=== PATIENT | female | born 1975 | race Caucasian/White ===

== ENCOUNTER 2022-10-18 15:19 | Outpatient (OUT) | payer BC, SELFPAY ==
--- NOTE | 2022-10-18 15:26 | XR_ITS ---
The [address] [address] Patient Name: ARSEN FLORES MRN: [id number] date: 1975 Sex: F Assigned Patient Location: [facility] Current Patient Location: RAD Accession/Order Number: [id number] Exam Date: 10/18/2022 15:40 Report Date: 10/18/2022 17:36 At the request of: ALISSA STRICKLAND Procedure: XR chest 2V EXAM: XR chest 2V COMPARISON: 02/04/2022 CLINICAL INDICATION: Concern for acute bronchitis. FINDINGS: The cardiomediastinal silhouette is within normal limits. No focal consolidation. No pleural effusion. No pneumothorax. Peribronchial thickening seen on today's exam, also appears to be present on priors, chronic small airways disease versus acute bronchitis. Lungs appear slightly hyperexpanded with relative lucency in the apices, suggesting emphysematous change. XR/XR chest 2V IMPRESSION: Peribronchial thickening seen on today's exam, also appears to be present on priors, chronic small airways disease versus acute bronchitis. Lungs appear slightly hyperexpanded with relative lucency in the apices, suggesting emphysematous change. No focal consolidation. Electronically authenticated by: JULIO CESAR ANN Date: 10/18/2022 17:36
== END 2022-10-18 15:20 | disposition home or self-care (01) ==
PROVIDERS: PCP Family Medicine; Visit Provider Internal Medicine
DX: J20.9 Acute bronchitis, unspecified (principal)
CPT/HCPCS: 71046

== ENCOUNTER 2025-01-28 19:57 | Emergency (ER) | payer BC, SELFPAY ==
--- OUTSIDE RECORDS SUMMARY | 2024-11-27 09:30 | XMS_ITS ---
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 Name Role Phone Marco A Umanzor DO Primary Care Provider Unavailab Joseph Power Unavailable [phone] REASON FOR VISIT 6m F/U - Asthma Encounters Encounter Location Date Provider Diagnosis [facility] [address] [place] [address] 11/27/2024 Joseph Weaver Plan Of Treatment No Information Progress Notes * Flaquito CHILDERSFortinoB: 3 (50 yo F)Acc No.[id number]:11/27/2024 UNLOCKED PROGRESS NOTE Follow Up Patient: Stacey MELÉNDEZ :?MILDRED FountainOB:1975???Age:49 Y ???Sex:FemaleDate:11/27/2024Phone:[phone]:[address], [id number]:Marco A Umanzor DO Subjective: * Chief Complaints: * 1 . 6m F/U - Asthma. * Medical History: Objective: * Vitals: Assessment: Plan: * Treatment: * * Electronic signature of Joseph Weaver DO on 01/28/2025 at 08:39 PM EDTSign off status: PendingVisit Status:?OFF CANC (OFFICE CANCEL) * Provider: Jaziel Weaver DO Date: 0 11/27/2024 Generated for Printing/Faxing/eTransmitting on:?01/28/2025 08:39 PM EDT
--- OUTSIDE RECORDS SUMMARY | 2025-01-24 20:57 | XMS_ITS | Continuity of Care Document ---
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 Phone Marco A Umanzor DO Primary Care Provider Marco A Umanzor DO Attending Provider [phone] Care Teams Patient Care Team Team Status: Active Member Role/Relationship Status Dates Marco A Umanzor DO Primary Care Provider Active Visit Care Team Team Status: Inactive Member Role/Relationship Status Dates Marco A Umanzor DO Primary Care Provider Active S tart: December 31, 2024 End: December 31, 2024Dakatalina Umanzor DOAttlizeth ProviderActiveStart: December 31, 2024 End: December 31, 2024 Visit Care Team Team Status: Inactive Member Role/Relationship Status Dates Marco A Umanzor DO Primary Care Provider Active S tart: January 02, 2025 End: January 02, 2025DaErik Díaz ProviderActiveStart: January 02, 2025 End: January 02, 2025 Visit Care Team Team Status: Inactive Member Role/Relationship Status Dates Marco A Umanzor DO Primary Care Provider Active S tart: January 24, 2025 End: January 24, 2025DaErik Díaz ProviderActiveStart: January 24, 2025 End: January 24, 2025 Chief Complaint and Reason for Visit Chief Complaint Admit Date Z79.899 R73.9 D88.9 E05.90 R35.1 D64.9 S eptember 2024 8:41am review labs/med refill January 02, 2025 1:19pm Z12.31 January 24, 2025 1 :11pm Reason for Visit Admit Date Anemia January 02, 2025 1: 19pm Asthma January 02, 2025 1: 19pm Foot pain, bilateral January 02, 2025 1 :19pm Hematuria January 02, 2025 1: 19pm Hyperglycemia January 02, 2025 1: 19pm Hyperlipidemia January 02, 2025 1: 19pm Hyperthyroidism January 02, 2025 1: 19pm Sleep apnea January 02, 2025 1: 19pm Vitamin D deficiency January 02, 2025 1 :19pm Allergies, Adverse Reactions, Alerts Allergen Type Severity Reaction Last Updated Verified Status phentermine Allergy Unknown 04/11/2023 unable to tolerate: shakiness January 02, 2025 9:14am Yes Active Social History Smoking Status Status Start Date End Date Date of Observa tion Ex-smoker (finding) January 02, 2025 1:28pm Observation Status Observation Response Date of Response Legal Sex [facility] (finding) [facility] Family History Relationship Condition Age at Onset Recorded Date/T pau Not Specified Coronary artery disease Unknown fatherHeart diseaseUnknownDeceasedUnknownHypertensionUnknownDiabetes mellitus UnknowngrandparentDeceasedUnknowngrandparentDeceasedUnknownDiabetes mellitus UnknownHeart diseaseUnknownDepressionUnknowngrandparentMyocardial infarction UnknownDeceasedUnknownmotherBorderline diabetes mellitusUnknownHeart disease UnknownDeceasedUnknownHypertensionUnknown Problems Active Problems Problem Diagnosis/Recorded Date Onset Date Status C omments Suspected 2018 novel coronav irus infection August 08, 2019 1:46pm Unknown Active COVID-19October 2021 4:42amUnknownActiveAcute coughFebruary 2024 10:26amUnknownActiveBody mass index [BMI] 40.0-44.9, adultMarch 2024 1:43pmUnknownActiveAcute respiratory failure with hypoxiaMay 2019 3:43pm UnknownActiveCOPD with acute exacerbationMay 2019 3:42pmUnknownActiveSleep apneaOctober 2024 1:47pmUnknownActiveHematuriaOctober 2024 1:43pm UnknownActiveFatty liverJune 2023 12:15pmUnknownActiveAcute carpal tunnel syndromeJune 2021 5:30amUnknownActiveFoot pain, bilateralMarch 2023 1:50pmUnknownActiveAnemiaJuly 2023 9:48amUnknownActiveCellulitisNovember 2023 3:22pmUnknownActiveDyspneaMay 2019 1:46pmUnknownActiveAcute and chronic respiratory failure with hypoxiaOctober 2019 11:37amUnknownActive Tobacco smoker, less than 10 cigarettes per daySeptember 2019 1:48pm UnknownActiveHyperglycemiaJuly 2023 9:47amUnknownActiveHyperlipidemiaJune 2023 12:15pmUnknownActiveHyperthyroidismJune 2023 12:15pmUnknown ActiveContusion of ribJune 2019 10:04pmUnknownActiveWeight gainOctober 2023 1:40pmUnknownActiveWheezingMay 2019 1:46pmUnknownActiveMorbid obesity due to excess caloriesSeptember 2019 1:48pmUnknownActiveBody aches February 2024 10:25amUnknownActiveHypoxiaMay 2019 1:46pmUnknownActive Exposure to influenzaFebruary 2024 10:25amUnknownActiveInfluenza ALumbar painMarch 2024 1:44pmUnknownActiveHip pain, rightMarch 2024 1:43pm UnknownActiveAcute respiratory distressSeptember 2019 2:02pmUnknownActive COPD exacerbationSeptember 2019 2:02pmUnknownActiveAbdominal painOctober 2016 1:18amUnknownActiveVitamin D deficiencyJuly 2023 6:12pmUnknown ActiveAsthmaOctober 2021 3:00amUnknownActiveAcute hypokalemiaOctober 2016 1:18amUnknownActiveInactive/Resolved Problems Problem Diagnosis/Recorded Date Onset Date Status Loretta lutz COVID-January 10, 2022 3:50pm Unknown Resolved 01/23January 02, 2020 2:02pm Unknown Resolved Medications Medication Status Dose Units Route Directions Qty Days Refills S tart Date Stop Date End Date Reason(s) Instructions Adherence Oxycodone-Acetaminophen 5-325 mg tablet Discontinued 0 POQ6H as needed for Oggh4798Feh 2023July 2023 9:59amPain in both feet Pain in right foot Pain in left foottake 1/2 to 1 tablet by mouth every 6 hours as needed for pain Oxycodone-Acetaminophen 5-325 mg moachkJsbjosowhcmy3MTJ6X as needed for Hzyg3360 November 21, 2023October 2023 1:45pmPain in both feet Pain in right foot Pain in left foottake 1/2 to 1 tablet by mouth every 6 hours as needed for pain Oxycodone-Acetaminophen 5-325 mg xoxuctGzssxoqquziy6KZK0H as needed for Pocb6916 February 08ecember 2023 12:01pmPain in both feet Pain in right foot Pain in left foottake 1/2 to 1 tablet by mouth every 6 hours as needed for pain Phentermine (Adipex-P) 37.5 mg cqytqgXzmxeihrwjcl33.5MGPOEvery qjijfwh58037 March 07, 2024 11:35amFebruary 2024 10:10amWeight gain Abnormal weight gainErgocalciferol (Vitamin D2) 1,250 mcg (50,000 unit) capsule Myiwli1024DSRMOyidvy pfja44947Lblpasvw 2023 12:52pmUnknownOxycodone- Acetaminophen 5-325 mg oomajqRrluvxgllnyo0NQO0O as needed for Hftf2607Kcrrhuj 31st, 2025March 2024 10:16amPain in both feet Pain in right foot Pain in left foottake 1/2 to 1 tablet by mouth every 6 hours as needed for pain Oxycodone-Acetaminophen 5-325 mg vfamuxZjhiwxfgedes7WGU7L as needed for Ucdy1660 June 05pril 2024 10:58amPain in both feet Pain in right foot Pain in left foottake 1/2 to 1 tablet by mouth every 6 hours as needed for pain Oxycodone-Acetaminophen 5-325 mg vxvkmwXnloqrfxcaru5SDK3Z as needed for Ecec3523 July 092024 2:47pmPain in both feet Pain in right foot Pain in left foottake 1/2 to 1 tablet by mouth every 6 hours as needed for pain Oxycodone-Acetaminophen 5-325 mg flcbsgPbiadsozqxvi3DPF1F as needed for Rlfd7569 August 062024 3:50pmPain in both feet Pain in right foot Pain in left foottake 1/2 to 1 tablet by mouth every 6 hours as needed for pain Oxycodone-Acetaminophen 5-325 mg hiwagrWldshrqcqola5LRH3J as needed for Lubs9350 August 062024 4:55pmPain in both feet Pain in right foot Pain in left foottake 1/2 to 1 tablet by mouth every 6 hours as needed for pain Oxycodone-Acetaminophen 5-325 mg obywlpQyswuodkfyuv1GVC4Z as needed for Qahb4996 August 062024 5:34pmPain in both feet Pain in right foot Pain in left foottake 1/2 to 1 tablet by mouth every 6 hours as needed for pain Oxycodone-Acetaminophen 5-325 mg enicfiHgpfzpyaxtqc6IKM2H as needed for Uxop0432 August 06, 2024June 2024 2:22pmPain in both feet Pain in right foot Pain in left foottake 1/2 to 1 tablet by mouth every 6 hours as needed for pain Oxycodone-Acetaminophen 5-325 mg jrpjroRjpljsdiqgem2ATO7F as needed for Tiwr0852 September 10, 2024July 2024 10:51amPain in both feet Pain in right foot Pain in left foottake 1/2 to 1 tablet by mouth every 6 hours as needed for pain Oxycodone-Acetaminophen 5-325 mg pzvmjlTkarusxgcwac1ZOK6K as needed for Qyjl1574 October 082024 9:58amPain in both feet Pain in right foot Pain in left foottake 1/2 to 1 tablet by mouth every 6 hours as needed for pain Oxycodone-Acetaminophen 5-325 mg wertlmLoyunqyfnhfk3FFO0C as needed for Urej7261 November 08, 2024September 2024 4:37pmPain in both feet Pain in right foot Pain in left foottake 1/2 to 1 tablet by mouth every 6 hours as needed for pain Oxycodone-Acetaminophen 5-325 mg oagdcoPnksdqcgiiqe2QNK2N as needed for Jxbw5394 December 10, 2024October 2024 1:51pmPain in both feet Pain in right foot Pain in left foottake 1/2 to 1 tablet by mouth every 6 hours as needed for pain Theophylline 300 mg tablet extended release 12 yoLvosttoekihk297XLPCNmjxm January 02, 2020 12:00amMarc 2023 1:21pmtake 1 tablet by mouth once dailyVarenicline Tartrate (Chantix Starting Month Box) 0.5 mg (11)- 1 mg (42) tablets,dose sxrzBklshheixgxk5SVBUXbfk package directionsSept2019 12:00amApril 2021 1:17amuse as directed ON PACKAGEAlbuterol Sulfate 90 mcg/actuation HFA aerosol inhalerDiscontinued1 - 8JXGZLSCVNMWSWWY9O as needed for Shortness Of BreathSe2019 12:00amOctober 2021 4:15am inhale 1 to 2 puffs by mouth every 4 hours if needed Kbpvkkjgqph-Dvkevkvll-Xknreuvb (Trelegy Ellipta) 100-62.5-25 mcg blister with qngbhrWbttfugnjovp9DELBPMOCWZEZOFzruqLqvmbyzlk 30th, 2020 12:00amMarch 2023 1:20pminhale 1 puff by mouth once dailyPrednisone 20 mg TabletDiscontinued 60MGPODaily Taper: Start: January 05, 2020 9:00am End: January 08, 2020 8:59am Frequency: DAILY Days: 2 Hours: 0 Dose: 60 Start: January 08, 2020 9:00am End: January 11, 2020 8:59am Frequency: DAILY Days: 3 Hours: 0 Dose: 40 Start: January 11, 2020 9:00am End: January 14, 2020 8:59am Frequency: DAILY Days: 3 Hours: 0 Dose: 20 Start: January 14, 2020 9:00am End: January 17, 2020 8:59am Frequency: DAILY Days: 3 Hours: 0 Dose: 9289043Yoyxhhj 2019 12:00amApril 2021 1:83sq99uh daily for 2 days then 40mg daily for 3 days then 20mg daily for 3 days then 10mg daily for 3 days Please contact the information source for Taper Schedule details.Coenzyme Q10 400 mg JycxmojIxyjnjklrblq134SMAHVbghtIrtxt 2021 12:00amOctober 2023 1:22pmPrednisone 10 mg IgctwfDnumnaopxbli44CEXBNjpva667Ybslh 2021 12:00am July 24, 2021 8:31amadminister with food or milkAlbuterol Sulfate (Proventil Hfa) 90 mcg/actuation Hfa Aerosol OxqrvtoLaxopj2TNQSJQEDLZXTYSZRHNY 4-6 HOURS as needed for Shortness Of Breath Or Qtmbqyjq53Jlegs 2021 12:00amwith spacer UnknownOxycodone-Acetaminophen 5-325 mg ljoqxjBplxjynbxmzl1VANBNZ8E as needed for PainApril 2021 12:00amMarch 2023 1:54pm1/2 TO I TAB EVERY 6 HRS PRNIpratropium-Albuterol 0.5 mg-3 mg(2.5 mg base)/3 mL solution for nebulization Pheivj9ZRVVQUWONTTSPuhm times horrd142216Gvjti 2021 12:00amUnknown Methylprednisolone (Medrol) 8 mg rkjqstCrnjsitxwmue2FVKIJrucp584Zheze 2021 12:00amOctober 2021 4:15am32 mg po daily x 4 days, then 16 mg po daily x4 days then 8 mg po daily x 4 days then 4 mg po dailyx4 days; pls dispense accordinglyAspirin (Aspirin Low Dose) 81 mg Tablet,Delayed Release (Dr/Ec) Vnycyejtofvh98TLXNAchjdGefrcur 2016 12:00amMay 2019 11:24am Terbinafine Hcl 250 mg WdwgwlUfyzllvwvmfz610IKFGGmqzzHlbqhke 2016 12:00am August 08, 2019 11:26amAlprazolam 0.25 mg TabletDiscontinued0.25MGPOTwice daily January 17, 2017 12:2019 11:24amMetoprolol Succinate 25 mg tablet extended release 24 icOjlgkakytwpp02ODPEmomcuVvgclqw 2016 12:2019 11:25amPhentermine 37.5 mg FfleixQtrsubrmlhzg45.5MGPODailyOctober 2016 12:2019 11:25amHydrocodone-Acetaminophen ([place]) 5-325 mg hcgbwpJmzazeemszqe6UJHYXG2R as needed for vpjr63Wrkpfge 2016 12:2019 11:24amPotassium Chloride 20 mEq qosogyIvmrxuqxlqkk60VYCTIJdeea65 January 18, 2017 12:2019 11:25amOndansetron (Zofran Odt) 4 mg tablet,qsmwgddcatxztpNlkkdsfcmkee4ORQTD2U as needed for anyylb000Tzusybn 2016 12:002019 11:25amPromethazine 25 mg zjihsyMmrwdalklpcp50XIXQ EVERY 4-6 HOURS as needed for nausea and xyisnxmz942Xjqpwfz 2016 12:00August 08, 2019 11:25amNaproxen 500 mg quiabyAkjisafozzyf867DAGTOhfdt daily as needed for ebfc250Jozurnw2016 12:2019 11:25amadminister with food or milkAlbuterol Sulfate 90 mcg/actuation HFA aerosol inhalerDiscontinued2 PUFFINHALATIONEVERY 4-6 HOURS as needed for Shortness Of BreathMa2019 12:00amSeptember 2019 1:07pmAlbuterol Sulfate 2.5 mg /3 mL (0.083 %) solution for gtuyijadmoebEtngnkxjsupx8VSXJOPCOMWTCFTQFC 4-6 HOURS as needed for Shortness Of Breath Or WheezingAugust 08, 2019 12:00amApril 2021 9:06am Gabapentin 300 mg LpqgatkAuklqyaanblb810ABXMKqrwa dailyMa 2020 12:00am January 02, 2020 11:38amAspirin 81 mg Tablet,KrhidwleYssjpw48OVIFZqdmzAcv 6th, 2020 12:00amUnknownBenzonatate 100 mg VkyvdtxTjkoblvoirxf642IBDFBoeel times daily as needed for Ulxzq53891Sai 9th, 2020 12:00amSeptember 2019 11:38am Fluticasone Propion-Salmeterol 113-14 mcg/actuation Aerosol Powdr Breath ZofwjdyfzEwoddplxpqpr6UUANNEBUMSSAERPwtkl wxfea3641ZkbAugust 11, 2019 12:00am January 02, 2020 1:11pmLevofloxacin 750 mg YiotmzItvzmlmropen118NUTML76J676 August 11, 2019 12:00amSeptember 2019 11:39amGuaifenesin (Mucinex) 600 mg Tablet Extended Release 12ynVvagygiuxpoi019WEKRWmhzr ykahm4249BlcAugust 11, 2019 12:00amApril 2021 1:17amPrednisone 10 mg emihvjGcwqjfdlpikg00IRNFCewfi105 August 11, 2019 12:00amSeptember 2019 11:39amTake 40 mg for 3 days then 30 mg for 3 days then 20 mg for 3 days then 10 mg for 5 days then stop Hydrochlorothiazide 25 mg yhaaloQwwjfsfhevua59AGTRHcpjq307Sdo 2019 12:00am January 02, 2020 11:38amPrednisone 10 mg AjfkkwNidyeekxdops10WKLEBibiq6783 September 13, 2021 12:00amOctober 2021 4:15amIbuprofen 800 mg Tablet Fgltzynsjvbv420VGPDLgcpj times daily as needed for Bipg459Ejhj 2021 12:00amMarch 2023 1:20pmPrednisone 10 mg eeqcnxAyuporpblbaf5PR.QZUKUSQ121 January 11, 2022 12:00amMarch 2023 1:21pmprednisone 5 mg: take 8 tablets (40 mg) on Day 1; 7 tablets (35 mg) on Day 2; then decrease by 1 tablet every day until finishedErgocalciferol (Vitamin D2) 1,250 mcg (50,000 unit) capsule Oqzihhgvgsys5TLAIJmxqkf weekMarch 2023 12:00amJuly 2023 9:38am FreeTextSi capsule Orally once weekly; Note: Source Status: Taking; Refills: 11; Provider: Erna Strickland COxycodone-Acetaminophen 5-325 mg tabletDiscontinued 0POQ6H as needed for PainMarch 2023 1:52pmMarch 2023 1:54pmtake 1/2 to 1 tablet by mouth every 6 hours as needed for painOxycodone-Acetaminophen 5- 325 mg yhxhnmXfbqxwuflcpz4QPI4X as needed for Yppz3170Dnphv 2023May 2023 9:49amPain in both feet Pain in right foot Pain in left foottake 1/2 to 1 tablet by mouth every 6 hours as needed for pain Ergocalciferol (Vitamin D2) 1,250 mcg (50,000 unit) zmvghuyXxpiubxrnxwa4684XHCPA every weekJuly 2023 9:38amDecember 2023 12:53pmPhentermine (Adipex-P) 37.5 mg aerqdjHldodfvmjxjl03.5MGPOEvery pdtrwki18409Wxcjmsnw 2023 10:22am March 07, 2024 11:36amWeight gain Abnormal weight gainCPAPActive0.ROUTE.MEDSUPPLYJune 2024 12:00amEstradiol 1 mg kwyvseTvmpqtasmwsw5YWNEWmleuQzny 2023 12:00amJune 2024 1:45pm Oxycodone-Acetaminophen 5-325 mg jurqiuBwqwyrpsdies4ZOO6H as needed for Zkgk3766 October 03ugust 2023 2:29pmPain in both feet Pain in right foot Pain in left foottake 1/2 to 1 tablet by mouth every 6 hours as needed for pain Mwygreclazf-Qfywvjoii-Vjoaqwmx (Trelegy Ellipta) 100-62.5-25 mcg blister with deviceActiveINHALATIONOctober 2023 12:00amINHALE 1 PUFF BY MOUTH ONCE DAILY. RINSE AFTER USEUnknownPhentermine (Adipex-P) 37.5 mg tabletDiscontinued 37.5MGPOEvery bzjexol70076Aabhqhu 2nd, 2024 12:00amNovember 2023 10:23am Weight gain Abnormal weight gainOxycodone-Acetaminophen 5-325 mg sowwhdLdyfpqvdrqpj3ASE8P as needed for Ztch6598Uvkyfud 2nd, 2024November 2023 3:50pmPain in both feet Pain in right foot Pain in left foottake 1/2 to 1 tablet by mouth every 6 hours as needed for pain Cephalexin 500 mg mifayksVuagwubvfwjy863WNXZPcqgv times qbzku8885Ldaagmho 2023 1:00amDecember 2023 11:32amBenralizumab (Fasenra) 10 mg/0.5 mL eqcizntGwntlc13RMSHRZPMSEYCG 8 WEEKSDeceer 2023 1:00amstart week 16 of treatmentUnknownOxycodone-Acetaminophen 5-325 mg tmqnkzEnuwjspbdlxh9HTM4V as needed for Fcqf9345Vrcwcwwb 2023January 2024 1:00pmPain in both feet Pain in right foot Pain in left foottake 1/2 to 1 tablet by mouth every 6 hours as needed for pain Diclofenac Sodium (Voltaren Arthritis Pain) 1 % lflIoeick5VAHNZBOVHXcdm times daily as neededMarch 2024 12:00amapply to single elbow, wrist or hand; for hand includes palm/fingers/back of handUnknownOseltamivir (Tamiflu) 75 mg vqmldypVxyaeoaqazux09XPQKMsbqs dncpx1099Qtxkllzp 2024 1:00amMarch 2024 1:29pmOxycodone-Acetaminophen 5-325 mg cxrmisPpkngv2XXX9U as needed for Iyxn2970Hwzipdq 1st, 2025Pain in both feet Pain in right foot Pain in left foottake 1/2 to 1 tablet by mouth every 6 hours as needed for pain UnknownNaloxone (Narcan) 4 mg/actuation spray,non-ujfuyulVcvfml6QSMBEMJJGUNLRIW Qdwz15Firogqv2024 12:00amspray 1 dose into ONE nostril; alternate nostrils w each dose until help arrivesUnknown Immunizations Immunization Event Date Not Given Reason Dose Number Director Education Lot Number Reason(s) Given Vaccine Information Statement (VIS) Detail Administration Location COVID-19 mRNA-1273 (Moderna) August 21, 2020 COVID-19 mRNA-1273 (Moderna)September 18, 2020Quadrivalent Influenza (mdv)July 24neumococcal Polysacc. Vaccine, valentApril [id number] [facility] Vaccine, valentMay 2019Quadrivalent InfluenzaApril [id number] Health System CtrQuadrivalent InfluenzaOctober 2019Zoster Vaccine Recombinant, AdjuvantedApril 2023Zoster Vaccine Recombinant, AdjuvantedSeptember [id number], Diphtheria, Pertussis (Tdap)July [facility] Trivalent Influenza VaccineOctober 2018Patient RefusedHepatitis A & B Vaccine/PFSeptember [id number] A & B Vaccine/PFMay [id number] Shingles (Zoster)[facility] Procedure Date Performed Status Urine Culture December 31, 2024 completed MM screening mammo BI w/CAD January 24, 2025 1 :13pm completed Relevant Diagnostic Tests and/or Laboratory Data Laboratory Results Test Collection Date/Time Result Date/Time Result Interpretation Reference Range Result Comment Performing Site Corrected White Blood Count December 31, 2024 9:08am December 31, 2024 2:19pm 5.0 10*3/uL 3.8[facility]11.6[facility] [id number] [address] [facility] [address]Lucyrjvotja WBC CountSeptember 2024 9:08amSeptember 2024 2:19pm5.0 10*3/uL3.8-11.6FK[facility] [id number] [address] [facility] [address]Tot Blood CountSeptember 2024 9:08amSeptember 2024 2:19pm4.20 10*6/uL3.60-5.00[facility] [id number] [address] [facility] 727[address]TgiqftkhooMxotkerue 2024 9:08amSeptember 2024 2:19pm12.2 g/dL11.8-15.4FK[facility] [id number] [address] [place] [address] 57254ZoqctjnkyqWzfnpgtlc 2024 9:08amSeptember 2024 2:19pm36.1 %34.0-46.4FK[facility] [id number] [address] [place] [address] 17302Xukb Corpuscular VolumeSeptember 2024 9:08amSeptember 2024 2:19pm85.8 jY65-156CvtdwgeheMemorial Health System Ctr [id number] [address] [place] [address] 31363Oled Corpuscular HemoglobinSeptember 2024 9:08amSeptember 2024 2:19pm29.0 pg24.7-34.3FK[facility] [id number] [address] [place] [address] 93073Ofhr Corpuscular Hemoglobin ConcentSeptember 2024 9:08am December 31, 2024 2:19pm33.8 g/dL32.0-35.0[facility] [id number] [address] [place] [address] 92935Vez Cell Distribution WidthSeptember 2024 9:08amSeptember 2024 2:19pm14.1 %11.9-15.3FK[facility] [id number] [address] [place] [address] 93933Ohfdunss CountSeptember 2024 9:08amSeptember 2024 2:86tl186 10*3/rZ658-223JpbrcreylMemorial Health System Ctr [id number] [address] [place] [address] 16182Sbsp Platelet VolumeSeptember 2024 9:08amSeptember 2024 2:19pm7.5 fL6.3-10.7FK[facility] [id number] [address] [place] [address] 74001Eragekuphup (%) (Auto)December 31, 2024 9:08amSept2024 2:19pm68.4 %.[facility] [id number] [address] [facility] 45999Zhpnvvueasx (%) (Auto)December 31, 2024 9:08amSept2024 2:19pm22.0 %.[facility] [id number] [address] [facility] 14845Tfpsumtkn (%) (Auto)December 31, 2024 9:08amSept2024 2:19pm8.9 %.[facility] [id number] [address] [facility] 15746Cjzhwfhgaor (%) (Auto)December 31, 2024 9:08amSept2024 2:19pm0.0 %.[facility] [id number] [address] [facility] 13727Luzpdjhiq (%) (Auto)December 31, 2024 9:08amSept2024 2:19pm0.7 %.[facility] [id number] [address] [facility] 217[address]Eebgbwvlb RBC Relative Count (auto)December 31, 2024 9:08am December 31, 2024 2:19pm0.0 /100{WBC}0-0.5FK[facility] [id number] [address] [place] [address] 76[address]Luifdhpmmae # (Auto)December 31, 2024 9:08amSept2024 2:19pm3.4 10*3/uL1.8-7.7FK[facility] [id number] [address] [place] [address] 39432Fsblsfepreb # (Auto)December 31, 2024 9:08amSept2024 2:19pm1.1 10*3/uL1.00-4.8[facility] [id number] [address] [facility] 217[address]Wxjwqnxuw # (Auto)December 31, 2024 9:08amSept2024 2:19pm0.4 10*3/uL0.0-0.8[facility] [id number] [address] [place] [address] [place] [address]Yilsgtdjyqq # (Auto)December 31, 2024 9:08amSeptember 2024 2:19pm0.0 10*3/uL0.0-0.45[facility] [id number] [address] [facility] 275[address]Ljnswbfmf # (Auto)December 31, 2024 9:08amSeptember 2024 2:19pm0.0 10*3/uL0.0-0.2FK[facility] [id number] [address] [facility] [address]98[address]Cbqqx ColorSeptember 2024 9:08amSeptember 2024 2:12pmLight-yellowYellowMemorial Health System Ctr [id number] [address] [facility] 75671Ziuzp AppearanceSeptember 2024 9:08amSeptember 2024 2:12pmClearClearFKettering Health Preble Ctr [id number] [address] [facility] 412[address]Bpnrp Specific GravitySeptember 2024 9:08amSeptember 2024 2:12pm1.0191.001-1.030[facility] [id number] [address] [facility] 24872Wqvzs pHSeptember 2024 9:08amSeptember 2024 2:12pm 6.05.0-9.0[facility] [id number] [address] [facility] 48336Wscme Leukocyte EsteraseSeptember 2024 9:08amSeptember 2024 2:12pmNegativeNegativeMemorial Health System Ctr [id number] [address] [facility] [address]Jrtex NitriteSeptember 2024 9:08amSeptember 2024 2:12pmNegativeNegativeMemorial Health System Ctr [id number] [address] [facility] 659[address]Gafby ProteinSeptember 2024 9:08amSeptember 2024 2:12pmNegative mg/dLNegativeMemorial Health System Ctr [id number] [address] [facility] 01041Ztawx Glucose (UA)December 31, 2024 9:08amSeptember 2024 2:12pmNormal mg/dLNormalMemorial Health System Ctr [id number] [address] [facility] [address]Hwmfa KetonesSeptember 2024 9:08amSeptember 2024 2:12pmNegativeNegativeMemorial Health System Ctr [id number] [address] [facility] 457[address]Cdgog UrobilinogenSeptember 2024 9:08amSeptember 2024 2:12pmNormal mg/dLNormalMemorial Health System Ctr [id number] [address] [facility] 89693Cyhjc BilirubinSeptember 2024 9:08amSeptember 2024 2:12pmNegativeNegativeMemorial Health System Ctr [id number] [address] [facility] 99004Tsfzp Occult BloodSeptember 2024 9:08amSeptember 2024 2:12pmTraceAbove high normalNegativeMemorial Health System Ctr [id number] [address] [facility] 8[address]Xihot RBCSeptember 2024 9:08amSeptember 2024 2:16pm 3-4 [HPF]0-4FK[facility] [id number] [address] [facility] 8[address]Qxozy WBCSeptember 2024 9:08amSeptember 2024 2:16pm 1-2 [HPF]0-4FK[facility] [id number] [address] [facility] 25161Mtmjp Squamous Epithelial CellsSeptember 2024 9:08am December 31, 2024 2:98ji0-7 [HPF]Above high normal0-2FK[facility] [id number] [address] [facility] [address]Pyzvn BacteriaSeptember 2024 9:08amSeptember 2024 2:16pmNone seen [HPF]None SeenMemorial Health System Ctr [id number] [address] [facility] 216[address]Brstj Hyaline CastsSeptember 2024 9:08amSeptember 2024 2:16pmNone [LPF]0-8[facility] [id number] [address] [facility] 366[address]Dsebz MucusSeptember 2024 9:08amSeptember 2024 2:16pmRare [LPF][facility] [id number] [address] [facility] 98254Xpmeosr LevelSeptember 2024 9:08amSeptember 2024 2:17pm99 mg/gD83-379YOH recommended reference rangeRandom Glucose Reference Range is dependent on time and content of last meal. Glucose of more than 200 mg/dL in a nonstressed, ambulatory subject supports the diagnosisof Diabetes Mellitus.[facility] [id number] [address] [facility] 97834Fuvtq Urea NitrogenSeptember 2024 9:08amSeptember 2024 2:17pm11 mg/dL7-25[facility] [id number] [address] [facility] 13343DtxubqchqyGbkccnuhz 2024 9:08amSeptember 2024 2:17pm0.78 mg/dL0.60-1.20[facility] [id number] [address] [facility] 87145Ypcvyfwdv GFR (CKD-EPI)December 31, 2024 9:08amSept2024 2:17pm> 60.0 mL/MinMemorial Health System Ctr [id number] [address] [facility] 53517Kglrtw LevelSeptember 2024 9:08amSeptember 2024 2:25lb056 mmol/U849-221OzoatnwybMemorial Health System Ctr [id number] [address] [facility] 09651Cpgpxpglg LevelSeptember 2024 9:08amSeptember 2024 2:17pm3.9 mmol/L3.5-5.1[facility] [id number] [address] [facility] 15392Meyzxvia LevelSeptember 2024 9:08amSeptember 2024 2:24rm849 mmol/P23-863KboeafjweMemorial Health System Ctr [id number] [address] [facility] 38272Xsqapy Dioxide LevelSeptember 2024 9:08amSeptember 2024 2:17pm31.5 mmol/LAbove high ttiddh95.0-31.0[facility] [id number] [address] [facility] 19504Pquog GapSeptember 2024 9:08amSeptember 2024 2:17pm 8.4 mEq/L6.0-15.0[facility] [id number] [address] [facility] 07633Lamccee LevelSeptember 2024 9:08amSeptember 2024 2:17pm8.9 mg/dL8.6-10.3FK[facility] [id number] [address] [facility] 22870Kwqhs ProteinSeptember 2024 9:08amSeptember 2024 2:17pm6.5 g/dL6.4-8.9[facility] [id number] [address] [facility] 32056TrrcsroPdpzzjcie 2024 9:08amSeptember 2024 2:17pm 3.9 g/dL3.5-5.7[facility] [id number] [address] [facility] 70490CzerisrmZrgmsocgo 2024 9:08amSeptember 2024 2:17pm 2.6 g/dLMemorial Health System Ctr [id number] [address] [facility] 86703Tdyyzja/Globulin RatioSeptember 2024 9:08amSeptember 2024 2:17pm1.5FK[facility] [id number] [address] [facility] 99942Gmtoy BilirubinSeptember 2024 9:08amSeptember 2024 2:17pm0.3 mg/dL0.3-1.0[facility] [id number] [address] [facility] 75121Vnreaqmil Amino Transf (AST/SGOT)December 31, 2024 9:08am December 31, 2024 2:17pm11 U/LBelow low heppar19-49XjvthpokgMemorial Health System Ctr [id number] [address] [facility] 96855Skmvuxo Aminotransferase (ALT/SGPT)December 31, 2024 9:08am December 31, 2024 2:17pm8 U/L7-52[facility] [id number] [address] [facility] 82764Walpwmba PhosphataseSeptember 2024 9:08amSeptember 2024 2:46ci739 U/LAbove high sqbqmy70-669MrxidjvrdMemorial Health System Ctr [id number] [address] [facility] 62865Htlh LevelSeptember 2024 9:08amSeptember 2024 2:17pm53 ug/wP76-879DlcyokaymMemorial Health System Ctr [id number] [address] [place] [address]1340Jpclo Iron Binding CapacitySept2024 9:08amSeptember 2024 2:41xe880 ug/uB372-215ArlliomnkMemorial Health System Ctr [id number] [address] [place] [address] 17175Ysla SaturationSeptember 2024 9:08amSeptember 2024 2:17pm20.2 %20-50[facility] [id number] [address] [place] [address] 27048XbjjzyuxfmtIiibdzilh 2024 9:08amSeptember 2024 2:94nr185 mg/dLBelow low axwpko220-790DybhtspyqMemorial Health System Ctr [id number] [address] [place] [address] 12109YtzmupsoTrjigdjog 2024 9:08amSeptember 2024 2:39pm 71.1 ng/mL11.0-306.8[facility] [id number] [address] [place] [address] 76262Ylgfovbxfet LevelSeptember 2024 9:08amSeptember 2024 2:13cp467 mg/tN492-820Hedt less than 200 mg/dl low riskChol 201-239 mg/dl borderline riskChol 240 mg/dl and greater high riskMemorial Health System Ctr [id number] [address] [facility] 86875KQQ CholesterolSeptember 2024 9:08amSeptember 2024 2:17pm50 mg/zP07-13RAT CHOL ATP-III CLASSIFICATION Cardiovascular RiskHDL > or equal to 60 mg/dL LOWHDL < 40 mg/dL HIGHMemorial Health System Ctr [id number] [address] [facility] 26583Jzbovbhbybbza LevelSeptember 2024 9:08amSeptember 2024 2:17pm68 mg/dL0-149TRIG ATP III CLASSIFICATIONTRIG less than 150 mg/dL NormalTRIG 150-199 mg/dL Borderline highTRIG 200-500 mg/dL High TRIG greater than 500 mg/dL Very highStandard traceable to the Center for Disease Conrtrol and Prevention (CDC) test method.[facility] [id number] [address] [facility] 29395QLU Cholesterol, CalculatedSeptember 2024 9:08amSeptember 2024 2:47gb336 mg/dLAbove high normal0-100LDL ATP III CLASSIFICATIONLDL less than 100 mg/dL OptimalLDL 100-129 mg/dL Near or above gljgiawEXH090-977 mg/dL Borderline highLDL 160-189 mg/dL HighLDL greater than 189 mg/dL Very high [facility] [id number] [address] [facility] 70663XYLJ CholesterolSeptember 2024 9:08amSeptember 2024 2:17pm13 mg/dLMemorial Health System [facility] [id number] [address] [facility] 27344Umsenesjirc/HDL RatioSeptember 2024 9:08amSeptember 2024 2:17pm3.8<5.0[facility] [id number] [address] [facility] 91774Clte ThyroxineSeptember 2024 9:08amSeptember 2024 2:36pm0.77 ng/dL0.61-1.12[facility] [id number] [address] [facility] 72096Xqco TriiodothyronineSeptember 2024 9:08amSept2024 2:29pm3.15 pg/mL2.50-3.90[facility] [id number] [address] [facility] 65048Hlpjwtz Stimulating Hormone 3rd GenSept2024 9:08am December 31, 2024 2:32pm2.09 u[iU]/mL0.45-5.33[facility] [id number] [address] [facility] 0590142-Cvkxhyj Vitamin D TotalSept2024 9:08amSept2024 2:46pm41.3 ng/iI01-557TCPFAJE D STATUS 25(OH)VITAMIN D RANGE (ng/mL) Deficient <20 Insufficient 20 to <08Poyhxxalwl36 to 100Reference: Patt MF,Kurtis GREEN, Ashely STEIN, et al. Evaluation,treatment, and prevention of vitamin D deficiency; an Endocrine Society clinical practice guideline. JCEM. 2010; 96(7):1911-30.[facility] [id number] [address] [facility] 16200Wcomyigo Creatinine Clearance (ChemSept2024 9:08am December 31, 2024 2:17pmN/[facility] [id number] [address] [facility] 92732Bqdoszkjcf B3xGnvoozqoi2024 9:08amSept2024 8:38am5.7 %Above high normal4.3-5.6Increased risk for diabetes: 5.7 - 6.4diabetes: >6.4glycemic control for adults with diabetes: <7.0[facility] [id number] [address] [facility] 92965Ezhsxirmm Average GlucoseSept2024 9:08amSept2024 8:81rn758 mg/dLMemorial Health System Ctr [id number] [address] [facility] [address] Microbiology Results Procedure Source Result Collection Date/Time Result Date/Time Result Comment Performing Site Urine Culture Urine, Clean-Voided Midstream 2 Days December 31, 2024 9:08am January 02, 2025 9:19am [facility] [id number] [address] [place], [place] [id number] Diagnostic Imaging Reports Author Conner Schneider [facility] CenterReport Date/TimeOctober 2024 2:43pm [facility] [address] [place] [address] Mammography Report Signed Patient: Stacey Childers MR#: [id number] : 1975 Acct:[id number] Age/Sex: 50 / F Adm Date: 5 Loc: [place] Room: Type: [facility] Attending Dr: Marco A Umanzor DO Ordering Provider: Marco A Umanzor DO Date of Service: 01/24/25 Procedure(s): MM screening mammo BI w/CAD Accession Number(s): ([id number]) MM/MM screening mammo BI w/CAD: Z12.31 - Copies to: Marco A Umanzor DO~ BILATERAL Screening Full Field digital mammogram with 3-D imaging. Full field digital CC and MLO imaging performed. CAD utilized. COMPARISON: 01/03/2024 HISTORY: Annual screening BREAST COMPOSITION: The breast is almost entirely fatty. BREAST CALCIFICATIONS: Benign calcifications present. VASCULAR CALCIFICATIONS: None ARCHITECTURAL DISTORTION: None BREAST NODULE: None AXILLARY LYMPH NODES: Normal POSTSURGICAL CHANGES: None MM/MM screening mammo BI w/CAD IMPRESSION: No mammographic evidence of malignancy. Routine follow-up recommended in one year. RESULT CODE: 2 Benign Findings(s) DENSITY CODE: 1 (<25% glandular) The breasts are almost entirely fatty. FOLLOW UP: 1YR THE FALSE-NEGATIVE RATE OF MAMMOGRAPHY IS APPROXIMATELY 10%. IMAGING OF A PALPABLE ABNORMALITY MUST BE BASED ON CLINICAL GROUNDS. PATIENT WAS ENTERED INTO A REMINDER SYSTEM WITH A TARGET DUE DATE FOR THE NEXT MAMMOGRAM. Impression dictated by: Conner Schneider M.D. 01/24/2025 2:43 PM Dictation Location: [facility] Dictated By: Conner Schneider DO 01/24/25 1441 Signed By: <Electronically signed by Conner Schneider DO in OV> 01/24/25 1443 Vital Signs Vital Reading Result Reference Range Collection Date/Time Height 64 [in_i] January 02, 2025 1:95leDyrfbc945.67 kgOctc[facility] 2024 1:24pmBody Temperature 98.3 [degF]97.6-99.0Octcumberland [facility] hospital 2024 1:24pmHeart Rate70 /gep39-925Vkqejzf 2024 1:24pmOxygen saturation by Pulse wchaxjgk66 %95-100Octc[facility] 2024 1:24pm BP Xhlzivrg277 mm[Hg]100-140Octcumberland county hospital 2024 1:24pmBP Uipkstbvh65 mm[Hg]60-100 January 02, 2025 1:24pmBMI (Body Mass Index)41.8 kg/z6Gjrdmmc 2024 1:24pm Advance Directives Advance Directive Response Recorded Date/ Time Advance Directives No January 03, 2017 2:24pm Insurance Providers Guarantor Stacey Childers Address [address] [place] [address]Vhscedt Info.Home Phone: Payer Group Member ID Coverage Type Subscriber Relationship to Subscriber Effective Date Expiration Date Annia WHITE/CHESTER Id: [id number] L Jimenez Id: [id number] [address] [place] [address] Home Phone: Email: [email or web address] CompanyBon [facility] [employer] [facility] Local Id: [id number] L Jimenez Id: [id number] [address] [place] [address] Home Phone: Email: [email or web address] Encounters Encounter Location(s) Arrival/Admit Date Discharge/Departure Date Discharge/Departure Disposition Provider(s) Departed Clinical -[facility] December 31, 2024 8:41am December 31, 2024 8:42am Discharged to home care or self care (routine discharge) Marco A Umanzor DO Departed Physician/ Provider Office Visit -[facility] January 02, 2025 1:19pm January 02, 2025 1:55pm Discharged to home care or self care (routine discharge) Marco A Umanzor DO [facility] January 24, 2025 1:11pm January 24, 2025 1:12pm Discharged to home care or self care (routine discharge) Marco A Umanzor DO Recent Diagnosis Onset Date Admit Date Anemia Unknown January 02 1:19pm Asthma Unknown January 02 1:19pm Foot pain, bilateral Unknown January 1:19pm Hematuria Unknown January 02 1:19pm Hyperglycemia Unknown January 02 1:19pm Hyperlipidemia Unknown January 02 1:19pm Hyperthyroidism Unknown January 02 1:19pm Sleep apnea Unknown January 02 1:19pm Vitamin D deficiency Unknown January 1:19pm Assessments Author Marco A Umanzor [facility] 2024 2:06pmThe above note written by ___Bayron Angel____ acting as human recorder, note dictated by Dr. Navarro .I performed the above HPI, ROS, and Examination. I formulated and dictated the treatment plan and was present for entire encounter. Marco A Umanzor D.O. Plan of Treatment Author Bayron Angel [facility] 2024 1:52pmDiscussed lab work results with her today. Her HGB is 12.2. Iron is 53. Ferritin is 71.1. % saturation is 20.2. She is not currently taking any iron and does not need to right now. Discussed blood sugar results with patient today. Glucose is 99. HgA1C is up from 5.5 to 5.7. Again, we discussed her watching her intake of carbs and sugars. Stay active. She voices that she is watching her intake of sugars and carbs. I did recommend that she lift weights working up to a couple sets of ten three days a week. She is going to follow with Dr. Weaver once he establishes his practice soon. Discussed cholesterol results with patient today. Total is 191. HDL is 50. LDL is 127. Triglycerides are 68. VLDL is 13. She is encouraged to continue to monitor her intake of carbs and sugars. Stay active as tolerated. Her Vitamin D level is 41.3. Will continue to monitor. Continue with once weekly Vitamin D. Her TSH is 2.09. Free T4 is 0.77. Free T3 is 3.15. She is not seeing Dr. Luo right now, will continue to monitor. She does continue to use and benefit from the pain medication. She was provided with a refill today. Frequent appointments needed due to addiction potential of medication. Pain inventory sheet completed and reviewed if opioid medication given. Pain contract is on file if pertinent. Patient will have office visits every three months for evaluation or sooner if needed. I discussed addiction potential of medication with the patient. Discussed with the patient and provided a treatment plan including the use of non-opioid analgesics and non-pharmacological intervention with patient if treated for pain. We have discussed realistic benefits and known risks of opioid/controlled therapy and the expected benefits for both pain and function. These benefits outweigh the risks. Patient has been counselled on the dangers of combining opioids/controlled prescriptions with alcohol or other sedatives and counseled on the safe storage and disposal of opioids/controlled prescriptions. Do not drive or operate heavy machinery after taking opioid/controlled medication. I have verified that no current substance abuse treatments are being prescribed.? We discussed her urine results today. She voices that years ago she saw Dr. Beckman for evaluation. For now her urine is stable, will continue to monitor. She voices that she has a CPAP machine but does not wear it, she admits she is tired all the time and should be wearing her machine. Provided her with an order for a mammogram today. Future Tests Future scheduled test information is unavailable Pending Tests Test Name Ordered Date Scheduled Date Comprehensive Metabolic Panel January 02, 2025 1:32pm 6 Months Future Visits Future appointment information is unavailable Future Procedures Procedure Name Ordered Date Scheduled Date A1C with Estimated Average Glu January 02, 2025 1:32pm 6 Months Complete Blood Count Auto Diff January 02, 2025 1:32pm 6 Months Iron and TIBC Profile January 02, 2025 1:32pm 6 Months Ferritin January 02, 2025 1:32pm 6 Month s Lipid Panel January 02, 2025 1:32pm 6 Month s Triiodothyronine (T3) Free January 02, 2025 1:3 2pm 6 Months Free T4 (Free Thyroxine) January 02, 2025 1:32p m 6 Months Thyroid Stimulating Hormone January 02, 2025 1: 32pm 6 Months Vitamin D 25 Hydroxy Total January 02, 2025 1:3 2pm 6 Months Future Medications Future medication information is unavailable Patient Instructions Patient instructions are unavailable
[2025-01-28 20:02] VITALS: BP 153/86; PULSE 84; TEMP 36.7; O2SAT 96; BMI 37.6
--- NOTE | 2025-01-28 20:34 | XR_ITS ---
[facility] [place] [id number] Patient Name: ARSEN FLORES MRN: [id number] date: 1975 Sex: F Assigned Patient Location: ED.MAIN Current Patient Location: ED.MAIN Accession/Order Number: [id number] Exam Date: 01/28/2025 21:10 Report Date: 01/28/2025 22:08 At the request of: GURDEEP RAMACHANDRAN Procedure: XR shoulder DANDRE min 2V 3 views right shoulder and 3 views of the left shoulder INDICATION: Pain COMPARISON: None FINDINGS: Mild degenerative changes involving the clavicular joints and glenohumeral joints. No fracture or dislocation identified. Soft tissues unremarkable. Lung apices are clear. XR/XR shoulder DANDRE min 2V IMPRESSION: Mild retained without evidence acute osseous abnormalities. Impression dictated by: Glenn Claros M.D. 01/28/2025 10:08 PM Dictation Location: [place] [address] Electronically authenticated by: [id number] Y Date: 01/28/2025 22:08
--- NOTE | 2025-01-28 20:35 | ED_ITS ---
Documented by User: Sharrilj Merazon 01/28/25 21:41 HPI HPI - Extremity Injury (Upper) General Chief Complaint: Extremity Injury, Upper Stated Complaint: SHOULDER PAIN Time Seen by Provider: 01/28/25 20:29 Source: patient Mode of arrival: walk-in Limitations: no limitations History of Present Illness HPI narrative: 50 year old female presents to the ED for bilateral shoulder pain. States her left shoulder has been bothering her for several days, but today it is the right shoulder. The pain is to the generalized shoulder area. It is worse with movement and palpation. Reports a tightness. Denies fever, chills, injury, weakness, N/T. The pain has been intermittent for several weeks. She did take one of her 's norco tablets at 1900 this evening. She is not driving and has a ride home. 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 Related Data Home Medications ?Medication ?Instructions ?Recorded ?Confirmed oxycodone-acetaminophen 5 mg-325 tab 01/28/25 mg tablet Allergies Allergy/AdvReac Type Severity Reaction Status Date / Time No Known Drug Allergies Allergy Verified 01/28/25 20:02 Opioid HPI Opioid Management Most Recent Pain and Opioid Data: Last Pain Scale 8 Today, 20:02 Review of Systems ROS Constitutional Denies: fever or chills Cardiovascular Denies: chest pain Respiratory Denies: shortness of breath Musculoskeletal Reports: extremity pain; Denies: back pain or neck pain Integumentary/Breast Denies: rash Neurological Denies: headache, numbness in extremities or weakness in extremities PFSH PFSH Social History Little interest or pleasure in doing things: not at all Feeling down, depressed, or hopeless: not at all Exam Constitutional Vital Signs, click to edit/add: Last Vital Signs Temp 98.0 F 01/28/25 20:02 Pulse 84 01/28/25 20:02 Resp 19 01/28/25 20:02 BP 153/86 H 01/28/25 20:02 Pulse Ox 96 01/28/25 20:02 O2 Del Method Room Air 01/28/25 20:02 Common normals: no apparent distress and oriented x3 General appearance: cooperative HENMT Common normals: moist oral mucous membranes Eye Common normals: conjunctivae normal and no scleral icterus Neck & C-Spine Common normals: supple Cervical spine: no cervical spine tenderness, no paracervical muscle tenderness and no paracervical muscle spasm Chest Chest: symmetrical chest wall rise Respiratory Common normals: normal respiratory effort Effort & inspection: able to speak in complete sentences and symmetric chest movement Cardio Common normals: regular rate Peripheral pulses: radial pulses present Extremity Other: Tenderness to bilateral shoulders, R>L. Tenderness is generalized. No swelling or obvious deformity noted. Decreased active and passive ROM due to pain. Distal sensation intact. Neuro Common normals: oriented x3 and moves all extremities Sensorium/orientation: awake and alert Speech: speech normal Course Vital Signs Vital signs: Vital Signs Temperature 98.0 F 01/28/25 20:02 Pulse Rate 84 01/28/25 20:02 Respiratory Rate 19 01/28/25 20:02 Blood Pressure 153/86 H 01/28/25 20:02 Pulse Oximetry 96 01/28/25 20:02 Oxygen Delivery Method Room Air 01/28/25 20:02 Temperature 98.0 F 01/28/25 20:02 Pulse Rate 84 01/28/25 20:02 Respiratory Rate 19 01/28/25 20:02 Blood Pressure 153/86 H 01/28/25 20:02 Pulse Oximetry 96 01/28/25 20:02 Oxygen Delivery Method Room Air 01/28/25 20:02 MDM - Extremity Injury (Upper) Imaging Data Shoulder x-rays: Radiologist's impression: ITS Impressions Shoulder X-Ray 01/28/25 20:34 IMPRESSION: Mild retained without evidence acute osseous abnormalities. Impression dictated by: Glenn Claros M.D. 01/28/2025 10:08 PM Dictation Location: [place] [address] Electronically authenticated by: [id number] Y Date: 01/28/2025 22:08 Discharge Plan Discharge Chief Complaint: Extremity Injury, Upper Clinical Impression: Bilateral shoulder pain Time of Disposition Decision: 22:15 Condition: Fair Mode of Transportation: Private Vehicle Prescriptions / Home Meds: No Action oxycodone-acetaminophen 5-325 mg tablet Print Language: Scottish Instructions: Rotator Cuff Tendinitis (ED) Referrals: DANNI CARRASQUILLO [Primary Care Provider, Family Practice] - 1 week Elpidio Bergeron MD [Physician, Orthopedics] - 1 week Documented by User: Raimundo Tan DO 01/28/25 22:31 HPI HPI - Extremity Injury (Upper) General Chief Complaint: Extremity Injury, Upper Stated Complaint: SHOULDER PAIN Time Seen by Provider: 01/28/25 20:29 Related Data Home Medications ?Medication ?Instructions ?Recorded ?Confirmed oxycodone-acetaminophen 5 mg-325 tab 01/28/25 mg tablet Allergies Allergy/AdvReac Type Severity Reaction Status Date / Time No Known Drug Allergies Allergy Verified 01/28/25 20:02 Opioid HPI Opioid Management Most Recent Pain and Opioid Data: Last Pain Scale 8 Today, 20:02 PFSH PFSH Social History Little interest or pleasure in doing things: not at all Feeling down, depressed, or hopeless: not at all Exam Narrative Exam Narrative: CONSTITUTIONAL: Well-appearing, answering questions and following commands appropriately SKIN: Was warm and dry. EYES: Sclerae white. EARS, NOSE, THROAT: Moist oral mucosa. RESPIRATORY: Clear to auscultation bilaterally, no wheezes, crackles, or stridor, no use of accessory muscles CARDIOVASCULAR: Normal rate and regular rhythm. There is no S3, S4, murmur, rub. GASTROINTESTINAL: Abdomen is nondistended. MUSCULOSKELETAL: There is reproducible tenderness to palpation about the bilateral shoulder joints. She is severely limited range of motion in the right shoulder, able to abduct to 30 degrees, unable to internally rotate. The left shoulder is able to abduct to 90 degrees, unable to internally rotate. There are no deformities. NEUROLOGIC: Patient is awake and alert. Good strength in the bilateral upper extremities. Sensation tact light touch throughout the bilateral upper extremities. Constitutional Vital Signs, click to edit/add: Last Vital Signs Temp 98.0 F 01/28/25 20:02 Pulse 84 01/28/25 20:02 Resp 19 01/28/25 20:02 BP 153/86 H 01/28/25 20:02 Pulse Ox 96 01/28/25 20:02 O2 Del Method Room Air 01/28/25 20:02 Course Vital Signs Vital signs: Vital Signs Temperature 98.0 F 01/28/25 20:02 Pulse Rate 84 01/28/25 20:02 Respiratory Rate 19 01/28/25 20:02 Blood Pressure 153/86 H 01/28/25 20:02 Pulse Oximetry 96 01/28/25 20:02 Oxygen Delivery Method Room Air 01/28/25 20:02 Temperature 98.0 F 01/28/25 20:02 Pulse Rate 84 01/28/25 20:02 Respiratory Rate 19 01/28/25 20:02 Blood Pressure 153/86 H 01/28/25 20:02 Pulse Oximetry 96 01/28/25 20:02 Oxygen Delivery Method Room Air 01/28/25 20:02 MDM - Extremity Injury (Upper) MDM Narrative Medical decision making narrative: Patient is a 50-year-old female, history significant for bilateral shoulder arthritis, presenting to the emergency department for evaluation of acute on chronic pain in the bilateral shoulders over the last few weeks. Her vital signs on arrival are within normal limits. She is afebrile and hemodynamically stable. The bilateral upper extremities are neurovascularly intact. Her exam is notable for severely limited range of motion in the bilateral shoulders, worse on the right. She has no chest pain, shortness of breath, or any other systemic symptoms. My clinical impression is that the patient is suffering from rotator cuff tendinopathy bilaterally, likely exacerbated by her occupation. I did obtain x- rays to rule out underlying osseous abnormalities. There is no history of trauma to suggest fracture or dislocation. X-rays of the bilateral shoulders independent reviewed and interpreted by myself and radiology demonstrate no acute osseous abnormalities. I do believe the patient is stable for discharge. Patient's presentation is most likely consistent with rotator cuff tendinopathy. They were instructed to follow up with orthopedic surgery, she would likely benefit from PT. Return precautions were given including any new or worsening symptoms. They were instructed to use NSAIDs at home for pain/inflammation. Patient understands and agrees to the plan. FINAL IMPRESSION: #Acute bilateral rotator cuff tendinopathy DISPOSITION: Discharged home CONDITION: Good Imaging Data Shoulder x-rays: Attestation: I personally reviewed and interpreted this imaging study as follows: Radiologist's impression: ITS Impressions Shoulder X-Ray 01/28/25 20:34 IMPRESSION: Mild retained without evidence acute osseous abnormalities. Impression dictated by: Glenn Claros M.D. 01/28/2025 10:08 PM Dictation Location: [place] [address] Electronically authenticated by: [id number] Y Date: 01/28/2025 22:08 Discharge Plan Discharge Chief Complaint: Extremity Injury, Upper Clinical Impression: Bilateral shoulder pain Time of Disposition Decision: 22:15 Condition: Fair Mode of Transportation: Private Vehicle Prescriptions / Home Meds: No Action oxycodone-acetaminophen 5-325 mg tablet Print Language: Scottish Instructions: Rotator Cuff Tendinitis (ED) Referrals: DANNI CARRASQUILLO [Primary Care Provider, Family Practice] - 1 week Elpidio Bergeron MD [Physician, Orthopedics] - 1 week
--- OUTSIDE RECORDS SUMMARY | 2025-01-28 20:40 | XMS_ITS | Clinical Summary ---
Author Organization [facility] Address [address] [facility] [place] [address] Care Team Providers Care Revenue Field Agent Name Role Phone Marco A Umanzor MD Primary Care Provider [phone] Allergies Active AllergyReactionsCriticalityNoted NjjrPbyiflwdAzqkdtftiju37/27/2024 Other Reaction(s): 04/11/2023 unable to tolerate: shakiness Medications MedicationSigDispense QuantityRefillsLast FilledStart DateEnd DateStatus ergocalciferol (Vitamin D2) 1.25 MG (48158 UT) capsule Take 1 capsule by mouth 1 (one) time per week.11/10/2022ctive Trelegy Ellipta 100-62.5-25 MCG/ACT aerosol powder inhale 1 puff by mouth and INTO THE LUNGS once daily Rinse mouth after use 11/16/2022ctive albuterol HFA 90 mcg/act inhaler inhale 1 puff by mouth every 4 hours if gbzlih6802/20/2022ctive ipratropium-albuterol (Duo-Neb) 0.5-2.5 mg/3 mL nebulizer solution inhale contents of 1 vial ( 3 milliliters ) in nebulizer by mouth... (REFER TO PRESCRIPTION NOTES).03/07/2022ctive oxyCODONE-acetaminophen (Percocet) 5-325 MG tablet take 1/2 to 1 tablet by mouth every 6 hours for 7 days11/15/2022ctive aspirin 81 MG EC tablet Take 81 mg by mouth in the morning.Active benralizumab (Fasenra Pen) 30 MG/ML injection Inject 30 mg under the skin every 8 (eight) weeksActive estradiol (Estrace) 1 MG tablet Indications:Hot flashes due to menopauseTake 1 tablet (1 mg) by mouth Daily 90 tablet ctive Active Problems ProblemNoted DateDiagnosed DateAdenomatous polyp of colon12/30/2022Rectal peinvgxb43/28/2153Pmdxhwro95/26/2799Lijdxdkz26/26/2012Cyst of wnrcrqz1004/04/2007 Fdbmgqgqsntkvp43/01/2008 Immunizations ImmunizationAdministration DatesNext DueInfluenza, injectable, quadrivalent, preservative free07/24/2021,01/30/2020Pneumococcal Polysaccharide PPSV23 07/24/2021,08/07/2019 Family History Medical HistoryRelationNameCommentsHeart diseaseFatherBreast cancerFather's Sisteruterus cancerFather's SisterDiabetesMaternal GrandmotherHeart disease Maternal GrandmotherHeart diseaseMotherColon cancerNeg HxRelationNameStatus GjoxjabuPyhvcen2RitwfQesmycUbjrmvxmNrfzrm's SisterOtherMaternal Grandmother MotherDeceased Social History Tobacco UseTypesPacks/DayYears UsedDateSmoking Tobacco: FormerCigarettesQuit: 2000Smokeless Tobacco: Never Tobacco Cessation:Counseling Given: Not Answered Alcohol UseStandard Drinks/WeekCommentsNever0 (1 standard drink = 0.6 oz pure alcohol)Caffine:SodaAUDIT-CAnswerDate RecordedQ1: How often do you have a drink containing alcohol?Never07/22/2023Q2: How many drinks containing alcohol do you have on a typical day when you are drinking?Patient does not drink07/22/2023Q3: How often do you have six or more drinks on one occasion?Never07/22/2023 CommentsNoSex and Gender InformationValueDate RecordedSex Assigned at BirthNot on fileLegal OxaSnctzp49/15/2023 6:43 PM EDTGender IdentityNot on fileSexual OrientationNot on file Last Filed Vital Signs Vital SignReadingTime TakenCommentsBlood Sunwkduw376/8407/22/2023 10:20 AM EDT Pulse--Temperature--Respiratory Rate--Oxygen Saturation--Inhaled Oxygen Concentration--Dlsuxi259 kg (248 lb)07/22/2023 10:20 AM RFEHnyfhq898.6 cm (5' 4 )07/22/2023 10:20 AM EDTBody Mass Index42.57007/22/2023 10:20 AM EDT Plan of Treatment Health MaintenanceDue DateLast DoneCommentsCT Gfohexzwimio1973Colonoscopy 1973Colorectal Cancer Ebbcqtnwt1973FIT-DNA1973FIT1973 FOBT1973 2695Ioeheqlwtfizm1973HPV/Dlcxrk4901/16/2003Influenza Vaccine (#1) 504/, 01/30/20205236Crjvqwuud59/01/293445/ervical Cancer Egsmyfpwq57/19/2027Pap Smear Procedures Procedure NamePriorityDate/TimeAssociated DiagnosisCommentsBI MAMMOGRAM SCREENING TOMOSYNTHESIS OZSROKOSPGpzmszf14/01/2024 3:51 PM EDTTHINPREP IMAGING PAP AND HPV DNA REFLEX HPV 16,68Bchgebn27/19/2024 12:00 AM EDT Screening for HPV (human papillomavirus) Encounter for screening mammogram for malignant neoplasm of breast from Last 3 Months or Most Recently Relevant to Health Maintenance Results * Bilateral screening mammogram with tomosynthesis (01/03/2024 3:51 PM EDT) Anatomical RegionLateralityModalityBreastBilateralMammography Narrative Authorizing ProviderResult TypeResult StatusDavid Loretta Umanzor MDIMG PROCEDURES Final Result * THINPREP IMAGING PAP AND HPV DNA REFLEX HPV 16,18 (07/22/2023 12:00 AM EDT) ComponentValueRef RangeTest MethodAnalysis TimePerformed AtPathologist SignatureCLINICAL INFORMATIONQUESTComment:None givenLMPQUESTComment:None given PREV. PAPQUESTComment:None givenPREV. BXQUESTComment:None givenSOURCEQUEST Comment:None givenSTATEMENT OF ADEQUACYQUESTComment: Satisfactory for evaluation. Endocervical/transformation zone component absent. INTERPRETATION/RESULTQUESTComment: Cytology Results: Negative for intraepithelial lesion or malignancy. INFECTIONQUESTComment: Shift in vaginal sammi suggestive of bacterial vaginosis. COMMENTQUESTComment: This case could not be evaluated with computer assisted technology. The slide was manually screened according to routine procedures. CYTOTECHNOLOGISTQUESTComment: NNO, CT(ASCP) CT screening location: [facility] [place] [address]. REVIEW CYTOTECHNOLOGISTQUESTComment: MRS, CT(ASCP) CT screening location: [facility] [place], [address] [place] [address]. (ALWAYS MESSAGE)QUESTComment: EXPLANATORY NOTE: The Pap is a screening test for cervical cancer. It is not a diagnostic test and is subject to false negative and false positive results. It is most reliable when a satisfactory sample, regularly obtained, is submitted with relevant clinical findings and history, and when the Pap result is evaluated along with historic and current clinical information. HPV DNA, HIGH RISK, CERVICALNot DetectedNOT DETECTEDQUESTComment: Not Detected High Risk HPV types (16,18,31,33,35,39,45,51,52, 56,58,59,66,68) were not detected. Other HPV types which cause anogenital lesions may be present. The significance of the other types of HPV in malignant processes has not been established. Methodology: Real Time PCR Specimen (Source)Anatomical Location / LateralityCollection Method / Volume Collection TimeReceived TimeSwabCervix uteri structure / Ujamfae1107/22/2023 07/23/2023 3:17 AM EDT Narrative Resulting Agency Comment Performing Organization Information ?Site ID: AMD ?Name: [facility] ?Address: [address] [place] [address] [place], [place] ?Director: Ean Garvey M.D.,PhD ?Site ID: [id number] ?Name: [facility] ?Address: [address] [place] [address], [address] [place] [id number] ?Director: Aneudy Davila MD Authorizing ProviderResult TypeResult StatusRichard A Visci DOLAB CYTOLOGY ORDERABLESFinal ResultPerforming OrganizationAddressCity/State/ZIP CodePhone Number [facility] from Last 3 Months or Most Recently Relevant to Health Maintenance Insurance Care Teams Team MemberRelationshipSpecialtyStart DateEnd Date Marco A Umanzor MD [address] [place] [id number] PCP - GeneralFamily Medicine09/22/22
--- OUTSIDE RECORDS SUMMARY | 2025-01-28 20:40 | XMS_ITS | Clinical Summary ---
Author Organization [facility] Address [id number] [place] [address] Care Team Providers Care Chemical Laboratory Scientist Name Role Phone Unavailable Primary Care Provider Unavailabl e Social History Tobacco UseTypesPacks/DayYears UsedDateSmoking Tobacco: Never AssessedChildcare AnswerDate YtrdyuolQpflxojtaOaldwyc55/19/2020EmploymentAnswerDate Recorded VquexfruiiIsjlyxj96/19/2020Purpose - LifeAnswerDate RecordedPurpose and direction in tsxnTzzeyzn56/11/2021CommentsUnknownSex and Gender InformationValueDate RecordedSex Assigned at BirthNot on fileLegal SexFemale 02/21/2020 10:31 AM ESTGender IdentityNot on fileSexual OrientationNot on file Plan of Treatment Health MaintenanceDue DateLast DoneCommentsDepression Bzubkcnse57/15/1985Tobacco Zgmexwfps85/15/1985Adult BMI Uxqgcqvvs43/15/1991DTaP,Tdap and Td Vaccines (1 - Tdap)01/17/1992Pap Smear1994Zoster (Shingles) Vaccine (1 of 2)2023 Influenza Qnislki1312/03/2024 Medical Devices Not on file
--- OUTSIDE RECORDS SUMMARY | 2025-01-28 20:40 | XMS_ITS | Patient Health Record ---
Author Organization [facility] [place] Address [address] [place] [address] Care Team Providers Care Merchandising Execution Associate Name Role Phone Marco A Umanzor DO Primary Care Provider Unavail Joseph Power Unavailable [phone] Allergies No Known Allergies Reason For Referral No Information Medications Medication SIG (Take, Route, Frequency, Duration) Notes Start Date End Date Status Aspirin 81 81 MG 1 tablet Orally Once a day ActiveFasenra Pen 30 MG/MLas directed Subcutaneous Every 8 weeks; Duration: 56 daysActiveAlbuterol Sulfate HFA 108 (90 Base) MCG/ACT2 puffs as needed for SOB Inhalation every 4 hrs; Duration: 90 daysActiveIpratropium-Albuterol 0.5-2.5 (3) MG/3ML3mL Inhalation QID; Duration: 30 daysActiveNystatin 861162 UNIT/ML4 mL Mouth/Throat Four times a dayActiveTrelegy Ellipta 100-62.5-25 MCG/ACT 1 puff Inhalation Once a day; Duration: 90 days Rinse after ActiveVitamin D2 50 MCG (1999 UT)1 tablet Orally Once a dayActive Immunizations Vaccine Route Administration Date Status Comme nts Flu, Fluzone (60412) 6 mos+, single-dose syringe/vial () Unknown 07/24/2021 Administered Hep A/Hep B, Adult, (Twinrix)Rrhzdbi43/02/2024AdministeredPneumococcal (Pneumovax 23)Xhpjhwm1308/07/2019AdministeredPneumococcal (Pneumovax 23)Unknown 2332ElnfglemxwclFGYA-IRW-6 (COVID 19 Moderna - Booster 0.25mL)Unknown 1AdministeredTdap (Boostrix)Coxdtiu8507/31/2023dministeredZOSTER (SHINGLES) VACCINE (HZV)Druewjl81/28/2024AdministeredZOSTER (SHINGLES) VACCINE (HZV)Tvjnzqc45/02/2024Administered Social History Tobacco Use: Social History Observation Description Date Details (start date - stop date) Former Smoker NA - NA Tobacco Control (Standard) Question Answer Notes Tobacco use: Former smoker How long has it been since you last smoked?1-5 yearsAdditional Findings: Tobacco wig-iehmZr-cztsumlm cigarette smoker (10-19/day) Problems Problem Type SNOMED Code ICD Code Onset Dates Problem Status W/U Status Risk Notes Problem Morbid obesity (disorder) (28391 6002) Morbid (severe) obesity due to excess calories (E66.01) ActiveconfirmedProblemUncomplicated severe persistent asthma (852224404)Severe persistent asthma, uncomplicated (J45.50)ActiveconfirmedProblemChronic respiratory failure (40544466)Chronic respiratory failure with hypoxia (J96.11) ActiveconfirmedProblemLong-term current use of inhaled steroid (244215683)[facility] (current) use of inhaled steroids (Z79.51)ActiveconfirmedProblemObstructive sleep apnea (12967599)Obstructive sleep apnea (G47.33)ActiveconfirmedProblemEx- tobacco user (finding) (462579773)History of tobacco abuse (Z87.891)Active confirmed1/2 ppd x 20 years, quit 6239SdpuzbdDlcno-0-gickmobucms phenotype PiMS (finding) (605950426)Alpha 1-antitrypsin PiMS phenotype (Z14.8)Active confirmedProblemHistory of COVID-19 (533457038212587564)History of COVID-19 (Z86.16)Kpqdxkmnmpdofeq16/9/2022roblemPeripheral eosinophilia (D72.19)Active confirmed Vital Signs Heart Rate 63 /min 05/29/2024 Ltlwecfoerg55.0 degrees Gdknwgwjci93/25/2025Respiratory Rate18 /min05/29/2024 Wtczxjfz76 %05/29/2024lood pressure mm Hg05/29/20247066Xgonon91 in 05/29/2024lood pressure cllwiyve802 mm Hg05/29/20248364Xknlff243.6 lbs05/29/2024MI 40.28 kg/m205/29/2024 Encounters Encounter Location Date Provider Diagnosis [facility] [place] [address] [place] [address] 05/29/2024 [facility] Severe persistent asthma, uncomplicated J45.50 ; Peripheral eosinophilia D72.19 ; Alpha 1-antitrypsin PiMS phenotype Z14.8 ; Obstructive sleep apnea G47.33 ; [facility] (current) use of inhaled steroids Z79.51 ; History of tobacco abuse Z87.891 and Morbid (severe) obesity due to excess calories E66.01 [facility] [place] [address] [place] [address] 04/24/2024 [facility] [address] [place] [address]/04/20[facility] [address] [place] [address] 10/23/2024[facility] Assessments Encounter Date Diagnosis (ICD Code) Assessment Notes Treatment Notes Treatment Clinical Notes Section Notes 05/29/2024 Severe persistent asthma, uncomp licated (ICD-10 - J45.50) Remains very well-controlled with Fasenra on top of Trelegy. No reported adverse effects with either medication and rare albuterol use. She does use DuoNeb during times of distress, which is essentially limited to temperature extremes (both cold and heat). Refilled Trelegy, albuterol HFA, and DuoNeb. This coming September, it will be 3 years since a PFT was last performed. I recommended repeating a PFT September 2024 to document improvement vs. stability in her spirometry since starting Fasenra. 05/29/2024Peripheral eosinophilia (ICD-10 - D72.19) Continues to respond extremely well with Fasenra 05/29/2024lpha 1-antitrypsin PiMS phenotype (ICD-10 - Z14.8) Patient has normal variant alpha1-antitrypsin phenotype MS. This in itself will not cause or typically contribute to emphysema. If the patient has any children, offer was made to provide testing kitsso they can be tested to assess if they are carriers. 05/29/2024Obstructive sleep apnea (ICD-10 - G47.33) Non-compliant - could not tolerate PAP. 05/29/2024Long term (current) use of inhaled steroids (ICD-10 - Z79.51) Patient was counseled to rinse & gargle with water after inhaled corticosteroid use. 05/29/2024History of tobacco abuse (ICD-10 - Z87.891)1/2 ppd x 20 years, quit 06/2021 This patient does not meet current LDCT criteria (e.g. age, time from cessation, # pack-years). 05/29/2024Morbid (severe) obesity due to excess calories (ICD-10 - E66.01) Patient's weight is inducing a restrictive pulmonary physiology. Weight loss indicated: Decrease calories, increase activity. 05/29/2024Other Plan Of Treatment Future Test Test Name Order Date PFT (63618, 58368, 43676) 10/01/2024 Insurance Providers Payer Name Payer Address Payer Phone Subscriber Number Group Number Insured Name Patient Relationship to Insured Coverage Start Date Coverage End Date [employer] PPO PLUS LOCAL PLAN [address] [place] [phone] [id number] Stacey Childers Self - patient is the insured 3 Medical (General) History Medical History History ICD Code Severe persistent asthma, uncomplicated J45.50 Obstructive sleep apnea G47.33 Peripheral eosinophilia D72.19 Alpha 1-antitrypsin PiMS phenotype Z14.8 [facility] (current) use of inhaled stero ids Z79.51 History of COVID-19 Z86.16 History of tobacco abuse Z87.891 Surgical History Surgery Date(Month/Year) Cholecystectomy hysterectomyHospitalization History Reason Date(Month/Year) COPD Exacerbation 01/10/2022
--- OUTSIDE RECORDS SUMMARY | 2025-01-28 20:40 | XMS_ITS | Clinical Summary ---
Author Organization [facility] Address [address], [address] [place] [address] Care Team Providers Care Insulator Apprentice Name Role Phone Marco A Umanzor DO Primary Care Provider Unavail able Encounters DateTypeDepartmentCare UbjzOqgyvhkhwsd37/14/2025bstract [facility] Pulmonology [address] [place] [address] [address] [place] [address] Joseph Weaver DO from Last 3 Months Social History Tobacco UseTypesPacks/DayYears UsedDateSmoking Tobacco: Never Assessed CommentsUnknownSex and Gender InformationValueDate RecordedSex Assigned at Not on fileLegal WilVloctf19/02/2025 2:23 PM EDTGender IdentityNot on fileSexual OrientationNot on file Plan of Treatment Health MaintenanceDue DateLast DoneCommentsDepression Dmveth6501/16/1985HIV screen 01/17/1988Hepatitis C spmvgh3201/16/1991DTaP/Tdap/Td vaccine (1 - Tdap)01/17/1992 Hepatitis B vaccine (1 of 3 - 19+ 3-dose series)01/17/1992Pap smear1994 Cervical cancer unxzof3701/16/2003HPV (without or with Pap)2003Breast cancer zgwjew5901/16/20139124Qdkfhy96/15/4346Brtoqlnvnnm45/15/2018Colorectal Cancer Screen 2018FIT/FOBT: Average risk2018Fecal-DNA (Cologuard): Average risk 2018Sigmoidoscopy/CT jqxtuozhnbqy74/15/2018Pneumococcal 50+ years Vaccine (1 of 1 - PCV)2023Shingles vaccine (1 of 2)2023Flu vaccine (#1) 11/02/2024OVID-19 Vaccine (1 - season)2024Hepatitis A vaccineAged OutNo longer eligible based on patient's age to complete this topicHib vaccine Aged OutNo longer eligible based on patient's age to complete this topic Meningococcal (ACWY) vaccineAged OutNo longer eligible based on patient's age to complete this topicMeningococcal B vaccineAged OutNo longer eligible based on patient's age to complete this topicPolio vaccineAged OutNo longer eligible based on patient's age to complete this topic Insurance Care Teams Team MemberRelationshipSpecialtyStart DateEnd Date Marco A Umanzor DO [address] [place] [address] PCP - GeneralFamily Oeofppue47/2/25
--- OUTSIDE RECORDS SUMMARY | 2025-01-28 20:40 | XMS_ITS | Encounter Summary ---
Author Organization [facility] Address [address], [address] [place] [address] Care Team Providers Care Technical Programs Manager Name Role Phone Marco A Umanzor DO Primary Care Provider Unavail able Encounter Details DateTypeDepartmentCare Team (Latest Contact Info)Otevrgzdlng41/14/2025bstract [facility] Pulmonology [address] [place] [address] Joseph Weaver DO [address] [place] [address] Social History Tobacco UseTypesPacks/DayYears UsedDateSmoking Tobacco: Never Assessed CommentsUnknownSex and Gender InformationValueDate RecordedSex Assigned at Not on fileLegal OkdHamktm88/02/2025 2:23 PM EDTGender IdentityNot on fileSexual OrientationNot on filedocumented as of this encounter Plan of Treatment Not on file documented as of this encounter Visit Diagnoses Not on filedocumented in this encounter Care Teams Team MemberRelationshipSpecialtyStart DateEnd Date Marco A Umanzor DO [address] [place] [address] PCP - GeneralFamily Siwkbgkm86/2/25documented as of this encounter
[2025-01-28] MEDS: ORPHENADRINE 60 MG/2 ML VIAL IM (22:05)
== END 2025-01-28 22:33 | disposition home or self-care (01) ==
PROVIDERS: Emergency Provider Student in an Organized Health Care Education/Training Program; PCP Family Medicine
DX: M25.511 Pain in right shoulder (principal); M25.512 Pain in left shoulder; M19.012 Primary osteoarthritis, left shoulder; M19.011 Primary osteoarthritis, right shoulder
CPT/HCPCS: 73030; 96372; 99284; J2360